=== PATIENT | female | born 1940 | race Caucasian/White ===

== ENCOUNTER 2023-04-30 16:35 | Inpatient (IN) ==
[2023-04-30 16:45] VITALS: BMI 35.5
--- NOTE | 2023-04-30 17:16 | ED.ABDFE ---
HPI Time Seen Time Seen by Provider: 04/30/23 17:16 PCP Primary Care Physician: Dr. Gonzalez Complaint Doctors Chief Complaint Comments: 83-year-old female presents for evaluation. Not feeling well for the past 3 days. Having lower abdominal discomfort, worse in the left lower quadrant. Pain is dull, worse with palpation and movement, does not radiate. Developed nausea with vomiting today. Has not moved her bowels in 3 days, no change in medication, no known cause. Denies fever, chills, urinary issues. Denies upper respiratory symptoms, no cough. Only abdominal surgery history of hysterectomy, no known history of diverticulitis. Chief Complaint:: Pt states that she hasn't had a bowel movement since Friday. Yesterday she started having generalized intermittent abdominal cramping that is worse in the LLQ. Today pt has started having nausea with approximately five episodes of vomiting. Self Treatment fo Chief Complaint: Pt took Dulcolax x 3 yesterday and x 3 today with no results. COVID-19 Coronavirus risk:travel/contact w/high risk person: No Has patient experienced Coronavirus symptoms: No Reviewed Nurses Notes Review: Yes Source History Provided: Patient Mode of arrival Mode of Arrival: Ambulatory Timing Onset of Chief Complaint: 04/27/23 PMH PMH Past Medical History: Yes Past Medical History: Dyslipidemia, GERD and Hypertension Past Surgical History: Yes Surgical History: Hysterectomy and Thyroidectomy Past Surgical History Comment: bilateral tka, shoulders Family History History of Family Medical Conditions: Yes Family Medical History: Diabetes Mellitus and Hypertension Family Medical History Comment: cva Social History Does patient currently use any type of tobacco product: No Have you used tobacco products in the last 12 months: No Type of Tobacco Use: None Does any household member use tobacco: No Alcohol Use: Occasionally Do you use any recreational Drugs:: No Lives With: Alone Lives Where: Home Travel Risk Coronavirus risk:travel/contact w/high risk person: No Has patient experienced Coronavirus symptoms: No Infectious screening In the last 2 months have you had wt loss of >10#?: NO Have you had fever, night sweats or hemotysis?: No Have you traveled outside the country in the last 6 months?: No Isolation: Standard ROS Review of Systems Constitutional: No Symptoms Reported Eyes: No Symptoms Reported ENTM: No Symptoms Reported Respiratoy: No Symptoms Reported Cardiovascular: No Symptoms Reported Gastrointestinal/Abdominal: See HPI Genitourinary: No Symptoms Reported Neurological: No Symptoms Reported Musculoskeletal: No Symptoms Reported Integumentary: No Symptoms Reported Hematologic/Lymphatic: No Symptoms Reported All Other Systems: Reviewed and Negative PE Vital Signs Vitals: Vital Signs Temperature 98.9 F Pulse Rate 72 Respiratory Rate 20 Blood Pressure 167/89 O2 Sat by Pulse Oximetry 94 General General Appearance: Alert and In No Apparent Distress Eyes Eye exam: PERRL and EOMI ENT ENT Exam: Mucous Membranes Moist Neck Neck Exam: Normal Inspection Respiratory Respiratory Exam: Normal Lung Sounds Bilat; negative Accessory Muscle Use or Respiratory Distress Cardiovascular Cardiovascular Exam: Regular Rate, Normal Rhythm and Normal Heart Sounds Abdominal Exam Abdominal Exam: Normal Bowel Sounds, Soft and Tenderness (LLQ, with guarding, no rebound. Back - no CVA tenderness.) Extremeties Extremities Exam: Normal Inspection; negative Edema Neurologic Neurological Exam: Alert, Oriented X3 and CN II-XII Intact; negative Motor Sensory Deficit Skin Skin Exam: Warm and Dry COURSE Treatment Treatment: 83-year-old female with 3 days of left lower quadrant abdominal pain, constipation. Now with nausea and vomiting. Work-up initiated. Patient given IV fluids, IV Zofran. 1802 -acute abdomen series has nonspecific gas pattern, no obvious air-fluid levels. No free air under the diaphragm. Rectal exam - no obvious impaction. Labs acceptable. Will obtain CT scan of the abdomen pelvis w/IV contrast. 1940 -CT shows sigmoid colon wall thickening, 7 cm long, concerning for possible neoplastic process, versus sequelae of colitis. No obvious obstruction. Recommend admission for IV fluids, antibiotics, consult with surgery in the a.m. for possible sigmoidoscopy. ROR Labs Reviewed Laboratory Results Reviewed?: Yes 05/01/23 05:11 05/01/23 05:11 Laboratory: WBC 7.0 X10^3/uL (3.6-10.0) 04/30/23 17:34 RBC 4.74 X10^6/uL (3.5-5.4) 04/30/23 17:34 Hgb 13.6 g/dL (12.0-16.0) 04/30/23 17:34 Hct 41.6 % (36.0-47.0) 04/30/23 17:34 MCV 87.9 fL (80.0-100.0) 04/30/23 17:34 MCH 28.7 pg (27.0-34.0) 04/30/23 17:34 MCHC 32.6 g/dL (33.0-35.0) L 04/30/23 17:34 RDW 13.7 % (11.6-16.5) 04/30/23 17:34 Plt Count 190 X10^3/uL (150.0-450.0) 04/30/23 17:34 MPV 8.1 fL (7.4-11.0) 04/30/23 17:34 Neut % (Auto) 81.7 % (42.0-75.0) H 04/30/23 17:34 Lymph % (Auto) 9.9 % (21.0-51.0) L 04/30/23:34 [place] % (Auto) 6.2 % (0.0-13.0) 04/30/23 17:34 Eos % (Auto) 1.5 % (0.9-2.9) 04/30/23 17:34 Baso % (Auto) 0.7 % (0.2-1.0) 04/30/23 17:34 Neut # (Auto) 5.7 x10^3/uL (2.2-4.8) H 04/30/23 17:34 Lymph # (Auto) 0.7 X10^3/uL (1.3-2.9) L 04/30/23 17:34 [place] # (Auto) 0.4 x10^3/uL (0.3-0.8) 04/30/23 17:34 Eos # (Auto) 0.1 x10^3/uL (0.0-0.2) 04/30/23 17:34 Baso # (Auto) 0.0 X10^3/uL (0.0-0.1) 04/30/23 17:34 Absolute Nucleated RBC 0.1 /100WBC 04/30/23 17:34 Sodium 136 mmol/L (136-145) 04/30/23 17:34 Corrected Sodium 136 mmol/L (136-145) 04/30/23 17:34 Potassium 3.9 mmol/L (3.5-5.1) 04/30/23 17:34 Chloride 100 mmol/L (98-107) 04/30/23 17:34 Carbon Dioxide 29.2 mmol/L (21-32) 04/30/23 17:34 BUN 19 mg/dL (7-18) H 04/30/23 17:34 Creatinine 1.10 mg/dL (0.55-1.02) H 04/30/23 17:34 Est GFR (MDRD) Af Amer > 60 (>60) 04/30/23 17:34 Est GFR (MDRD) Non-Af 51 (>60) L 04/30/23 17:34 Glucose 118 mg/dL (65-99) H 04/30/23 17:34 Lactic Acid 0.5 mmol/L (0.4-2.0) 04/30/23 17:34 Calcium 8.5 mg/dL (8.5-10.1) 04/30/23 17:34 Corrected Calcium TNP 04/30/23 17:34 Total Bilirubin 0.70 mg/dL (0.2-1.0) 04/30/23 17:34 AST 16 Units/L (15-37) 04/30/23 17:34 ALT 14 Units/L (12-78) 04/30/23 17:34 Alkaline Phosphatase 88 Units/L (46-116) 04/30/23 17:34 Total Protein 7.2 g/dL (6.4-8.2) 04/30/23 17:34 Albumin 3.4 g/dL (3.4-5.0) 04/30/23 17:34 Globulin 3.8 g/dL (2.5-4.5) 04/30/23 17:34 Albumin/Globulin Ratio 0.9 Ratio (1.1-2.1) L 04/30/23 17:34 Lipase 29 Units/L (16-77) 04/30/23 17:34 Specimen Type Clean catch urine 04/30/23 17:25 Urine Color Dark yellow (YELLOW) 04/30/23 17:25 Urine Appearance Slightly hazy (CLEAR) 04/30/23 17:25 Urine pH 5.0 (5.0 - 8.0) 04/30/23 17:25 Ur Specific [place] 1.020 (1.000-1.030) 04/30/23 17:25 Urine Protein 1+ (NEGATIVE) 04/30/23 17:25 Urine Glucose (UA) Negative (NEGATIVE) 04/30/23 17:25 Urine Ketones Negative (NEGATIVE) 04/30/23 17: Urine Blood Negative (NEGATIVE) 04/30/23 17: Urine Nitrite Negative (NEGATIVE) 04/30/23 17:25 Urine Bilirubin Negative (NEGATIVE) 04/30/23 17: Urine Urobilinogen 1+ (NORMAL) 04/30/23 17: Ur Leukocyte Esterase Negative (NEGATIVE) 04/30/23 17: Urine RBC None seen /HPF (0-3) 04/30/23 17: Urine WBC None seen /HPF (0-5) 04/30/23 17: Ur Squamous Epith Cells Few /HPF (NEGATIVE) 04/30/23 17: Urine Bacteria Trace /HPF (NEGATIVE) 04/30/23 17: Urine Mucus Few /HPF (NEGATIVE) 04/30/23 17: Ur Culture Indicated? No/not indicated 04/30/23 17: XRAY XRAY Interpreted by: Radiologist X-ray Results: EXAM: ABDCMEN/PELVIS WITH CON HISTORY: hasn't had a bowel movement since Friday. Yesterday she started having generalized intermittent abd cramping that is worse in the LLQ. Today pt has started having n/v x5 episodes ; COMPARISON: None. TECHNIQUE: Axial CT images of the abdomen and pelvis were obtained after the administration of 100 mL Omnipaque 350 IV contrast and reformatted into coronal and sagittal planes for further evaluation. Radiation dose: 614.46 mGy-cm total DLP FINDINGS: Lung bases are clear. Stomach appears normal. Solid visceral organs of the upper abdomen are unremarkable. Gallbladder appears normal with no biliary dilatation. Cyst in the lower pole of the left kidney. Otherwise, unremarkable appearance of the kidneys and ureters. Unremarkable appearance of the urinary bladder. Imaged reproductive structures are unremarkable. Colonic diverticulosis without diverticulitis. Colonic wall thickening over a 7 cm segment in the sigmoid colon. Unremarkable appearance of the small bowel. No evidence of acute appendicitis. No pneumoperitoneum. No significant fluid collection. No adenopathy. No acute osseous abnormality. [id number] multilevel degenerative disc and joint changes. Small fat containing umbilical hernia without inflammatory changes. IMPRESSION: 1. Colonic wall thickening over a 7 cm segment in the sigmoid colon. No surrounding inflammatory changes. Differential diagnosis includes a neoplastic process; although the sequela of infectious/inflammatory/ischemic colitis should also be considered. No evidence of metastatic disease. 2. Colonic diverticulosis without diverticulitis. THIS IS AN ELECTRONICALLY VERIFIED FINAL REPORT 04/30/2023 7:03 PM - Electronically signed by Magnus Adkins MD Opioid Opioid Risk Tool Age (Deangelo box if 16-45): No History of Preadolescent Sexual Abuse: No Total: 0 Total Score Risk Category: Low Risk Copyright: Ross JHA predicting aberrant behaviors Discharge Plan Diagnosis Discharge Problem: Colitis Discharge Plan Patient Disposition: ADMITTED INPATIENT Condition: Stable
[2023-04-30] MEDS ORDERED: ZOFRAN INJ 4 MG VIAL IVP ONE (17:22)
[2023-04-30] MEDS ORDERED: NS 500 ML IV 500 ML IV ONE (17:23)
[2023-04-30 17:52] LABS: BASOPHILS % (AUTO) 0.7 % (0.2-1.0); EOSINOPHILS # (AUTO) 0.1 x10^3/uL (0.0-0.2); EOSINOPHILS % (AUTO) 1.5 % (0.9-2.9); HEMATOCRIT 41.6 % (36.0-47.0); HEMOGLOBIN 13.6 g/dL (12.0-16.0); LYMPHOCYTES # (AUTO) 0.7 X10^3/uL (1.3-2.9); LYMPHOCYTES % (AUTO) 9.9 % (21.0-51.0); MEAN CORPUSCULAR HEMOGLOBIN 28.7 pg (27.0-34.0); MEAN CORPUSCULAR HGB CONC 32.6 g/dL (33.0-35.0); MEAN CORPUSCULAR VOLUME 87.9 fL (80.0-100.0); MEAN PLATELET VOLUME 8.1 fL (7.4-11.0); MONOCYTES # (AUTO) 0.4 x10^3/uL (0.3-0.8); MONOCYTES % (AUTO) 6.2 % (0.0-13.0); NEUTROPHILS # (AUTO) 5.7 x10^3/uL (2.2-4.8); NEUTROPHILS % (AUTO) 81.7 % (42.0-75.0); PLATELET COUNT 190 X10^3/uL (150.0-450.0); RED BLOOD COUNT 4.74 X10^6/uL (3.5-5.4); RED CELL DISTRIBUTION WIDTH 13.7 % (11.6-16.5)
[2023-04-30 17:53] LABS: BILIRUBIN,URINE NEGATIVE (NEGATIVE); BLOOD/HEMOGLOBIN,URINE NEGATIVE (NEGATIVE); GLUCOSE, URINE NEGATIVE (NEGATIVE); KETONES,URINE NEGATIVE (NEGATIVE); LEUKOCYTE ESTERASE ,URINE NEGATIVE (NEGATIVE); NITRITES,URINE NEGATIVE (NEGATIVE); PROTEIN,URINE 1+ (NEGATIVE); UROBILINOGEN,URINE 1+ (NORMAL)
[2023-04-30 17:59] LABS: APPEARANCE,URINE SLIGHTLY HAZY (CLEAR); BACTERIA,URINE TRACE /HPF (NEGATIVE); COLOR,URINE DARK YELLOW (YELLOW); RBC,URINE NONE SEEN /HPF (0-3); SQUAMOUS EPITHELIAL CELL,UR FEW /HPF (NEGATIVE)
[2023-04-30 18:01] LABS: ALANINE AMINOTRANSFERASE 14 Units/L (12-78); ALBUMIN 3.4 g/dL (3.4-5.0); ALKALINE PHOSPHATASE 88 Units/L (46-116); ASPARTATE AMINO TRANSFERASE 16 Units/L (15-37); BLOOD UREA NITROGEN 19 mg/dL (7-18); CALCIUM 8.5 mg/dL (8.5-10.1); CARBON DIOXIDE 29.2 mmol/L (21-32); CHLORIDE 100 mmol/L (98-107); COR NA(FOR HYPERGLY) 136 mmol/L (136-145); GLUCOSE 118 mg/dL (65-99); LIPASE 29 Units/L (16-77); POTASSIUM 3.9 mmol/L (3.5-5.1); SODIUM 136 mmol/L (136-145); TOTAL PROTEIN 7.2 g/dL (6.4-8.2); eGFR NON BLACK RACES 51 (>60)
[2023-04-30] MEDS ORDERED: OMNIPAQUE 350 mg/mL 100 mL BTL 100 ML ONE (18:23)
--- NOTE | 2023-04-30 19:07 | CT ---
EXAM:ABDCMEN/PELVIS WITH CONHISTORY:hasn't had a bowel movement since Friday. Yesterday she started having generalized intermittent abd cramping that is worse in the LLQ. Today pt has started having n/v x5 episodes ;COMPARISON:None.TECHNIQUE:Axial CT images of the abdomen and pelvis were obtained after the administration of 100 mL Omnipaque 350 IV contrast and reformatted into coronal and sagittal planes for further evaluation.Radiation dose: 614.46 mGy-cm total DLPFINDINGS:Lung bases are clear.Stomach appears normal.Solid visceral organs of the upper abdomen are unremarkable.Gallbladder appears normal with no biliary dilatation.Cyst in the lower pole of the left kidney.Otherwise, unremarkable appearance of the kidneys and ureters.Unremarkable appearance of the urinary bladder.Imaged reproductive structures are unremarkable.Colonic diverticulosis without diverticulitis.Colonic wall thickening over a 7 cm segment in the sigmoid colon.Unremarkable appearance of the small bowel.No evidence of acute appendicitis.No pneumoperitoneum.No significant fluid collection.No adenopathy.No acute osseous abnormality.[id number] multilevel degenerative disc and joint changes.Small fat containing umbilical hernia without inflammatory changes.IMPRESSION:1. Colonic wall thickening over a 7 cm segment in the sigmoid colon. No surrounding inflammatory changes. Differential diagnosis includes a neoplastic process; although the sequela of infectious/inflammatory/ischemic colitis should also be considered. No evidence of metastatic disease.2. Colonic diverticulosis without diverticulitis.THIS IS AN ELECTRONICALLY VERIFIED FINAL [id number]/30/2023 7:03 PM - Electronically signed by Magnus Adkins MD
--- NOTE | 2023-04-30 20:09 | RAD ---
EXAM:ACUTE ABDOMEN SERI ESHISTORY:constipation, LLQ pain, vomiting;COMPARISON:No relevant prior studies available.TECHNIQUE:AP supine and upright abdominal radiographs with chest radiography, 3 images.FINDINGS:Moderate stool burden in the colon.Gas in scattered loops of non-distended small bowel.No gross free air.No abnormal calcifications.Lungs are clear of focal airspace disease.No cardiomegaly.No pneumothorax.No pleural effusion.No acute osseous abnormality.IMPRESSION:1. Moderate stool burden in the colon.2. Gas in scattered loops of non-distended small bowel could represent a nonspecific enteritis or ileus..THIS IS AN ELECTRONICALLY VERIFIED FINAL [id number]/30/2023 8:06 PM - Electronically signed by Magnus Adkins MD
[2023-04-30] MEDS ORDERED: ZOSYN VIAL 3.375 GRAMS IV ONE (20:15)
[2023-04-30] MEDS ORDERED: NS 100 ML IV 100 ML ONE (20:16)
[2023-04-30] MEDS: ZOSYN VIAL 3.375 GRAMS 3.375 G in NS 100 ML IV 100 ML IV SCH (20:21)
[2023-04-30] MEDS ORDERED: CONSULT PHARMACY - POTASSIUM & MAGNESIUM XX SCH (21:42)
[2023-04-30] MEDS ORDERED: ZOFRAN INJ 4 MG VIAL IVP PRN (21:42)
[2023-04-30] MEDS: FLAGYL IV PREMIX 500 MG BAG 500 MG/100 ML BAG IV SCH (22:25)
[2023-04-30] MEDS: D5 1/2 NS 1,000 ML 1,000 ML IV SCH (22:25)
[2023-04-30] MEDS ORDERED: K-DUR TAB 20 MEQ PO ONE (23:00)
[2023-05-01 05:46] LABS: BASOPHILS % (AUTO) 0.7 % (0.2-1.0); EOSINOPHILS # (AUTO) 0.1 x10^3/uL (0.0-0.2); EOSINOPHILS % (AUTO) 0.8 % (0.9-2.9); HEMATOCRIT 37.1 % (36.0-47.0); LYMPHOCYTES # (AUTO) 1.2 X10^3/uL (1.3-2.9); MEAN CORPUSCULAR HEMOGLOBIN 28.5 pg (27.0-34.0); MEAN CORPUSCULAR HGB CONC 32.4 g/dL (33.0-35.0); MEAN CORPUSCULAR VOLUME 87.8 fL (80.0-100.0); MEAN PLATELET VOLUME 8.4 fL (7.4-11.0); MONOCYTES # (AUTO) 0.7 x10^3/uL (0.3-0.8); MONOCYTES % (AUTO) 10.1 % (0.0-13.0); NEUTROPHILS # (AUTO) 4.8 x10^3/uL (2.2-4.8); NEUTROPHILS % (AUTO) 70.4 % (42.0-75.0); PLATELET COUNT 169 X10^3/uL (150.0-450.0); RED BLOOD COUNT 4.22 X10^6/uL (3.5-5.4); RED CELL DISTRIBUTION WIDTH 13.6 % (11.6-16.5); WHITE BLOOD COUNT 6.8 X10^3/uL (3.6-10.0)
[2023-05-01 05:59] LABS: ALANINE AMINOTRANSFERASE 12 Units/L (12-78); ALBUMIN 2.8 g/dL (3.4-5.0); ALKALINE PHOSPHATASE 70 Units/L (46-116); ASPARTATE AMINO TRANSFERASE 13 Units/L (15-37); BLOOD UREA NITROGEN 16 mg/dL (7-18); CALCIUM 8.1 mg/dL (8.5-10.1); CARBON DIOXIDE 32.6 mmol/L (21-32); CHLORIDE 104 mmol/L (98-107); COR CA(FOR HYPOALB) 9.1 mg/dL (8.5-10.1); COR NA(FOR HYPERGLY) 139 mmol/L (136-145); GLUCOSE 113 mg/dL (65-99); POTASSIUM 4.4 mmol/L (3.5-5.1); SODIUM 139 mmol/L (136-145); TOTAL PROTEIN 6.1 g/dL (6.4-8.2); eGFR NON BLACK RACES 51 (>60)
[2023-05-01] MEDS: ZOSYN VIAL 3.375 GRAMS 3.375 G in NS 100 ML IV 100 ML IV SCH ×2 (09:45→21:36)
[2023-05-01] MEDS: FLAGYL IV PREMIX 500 MG BAG 500 MG/100 ML BAG IV SCH ×2 (09:45→21:35)
[2023-05-01] MEDS ORDERED: MORPHINE SULFATE INJ 2 MG INJ IVP PRN (10:04)
[2023-05-01] MEDS: D5 1/2 NS 1,000 ML 1,000 ML IV SCH ×2 (11:37→21:36)
[2023-05-01] MEDS: SYNTHROID 75 mcg TAB PO SCH (11:39)
--- NOTE | 2023-05-01 13:07 | DR.H&P ---
H&P History & Physical for Day of: H&P Date: 04/30/23 Chief Complaint Chief Complaint: LEFT ABDOMINAL PAIN, N/V FOR 4 DAYS Allergies Allergies Allergy/AdvReac Type Severity Reaction Status Date / Time No Known Allergies Allergy Verified 04/30/23 16:45 History of Present Illness History of Present Illness: PT IS 83 WF, ER ADMISSION WITH CO LEFT LATERAL ABDOMINAL PAIN WITH N/V AND POOR APPETITE FOR 4 DAYS. PT STATES SHE FEELS CONSTIPATION BUT CANNOT PASS STOOL. PT REPORTS LAST COLONOSCOPY WAS 5 YEARS AGO. PT HAD CT ABD/PELVIS IN ER AND STARTED ON IV FLAGYL AND ZOSYN. DR LUGO CONSULTED. PT ADMITTED FOR TREATMENT AND EVALUATION OF ACUTE ILLNESS. Past Medical History Past Medical History: Dyslipidemia, GERD and Hypertension Past Surgical History Surgical History: Hysterectomy, Ortho Surgery, Thyroidectomy and Other Family History Family Medical History: Diabetes Mellitus and Hypertension Social History Does patient currently use any type of tobacco product: No Have you used tobacco products in the last 12 months: No Type of Tobacco Use: None Does any household member use tobacco: No Alcohol Use: Occasionally Drug Use: None Medications Home Medications: Home Medications Medication Instructions Recorded Confirmed Type carvedilol 6.25 mg tablet 1 tab PO BID 06/23/22 06/23/22 History irbesartan 300 mg tablet 300 mg PO QDAY 06/23/22 04/30/23 History levothyroxine 75 mcg tablet 75 mcg PO QAM 06/23/22 04/30/23 History pantoprazole 40 mg tablet,delayed 40 mg PO QDAY 06/23/22 04/30/23 History release aspirin 81 mg capsule 81 mg PO DAILY 04/30/23 04/30/23 History atorvastatin 10 mg tablet 10 mg PO QDAY 04/30/23 04/30/23 History cholecalciferol (vitamin D3) 100 100 mcg PO DAILY 04/30/23 04/30/23 History mcg (4,000 unit) capsule hydrochlorothiazide 12.5 mg capsule 12.5 mg PO QAM swelling 04/30/23 04/30/23 History meloxicam 15 mg tablet 15 mg PO QDAY 04/30/23 04/30/23 History Labs 05/01/23 05:11 05/01/23 05:11 Labs: Laboratory WBC 6.8 X10^3/uL (3.6-10.0) 05/01/23 05:11 RBC 4.22 X10^6/uL (3.5-5.4) 05/01/23 05:11 Hgb 12.0 g/dL (12.0-16.0) 05/01/23 05:11 Hct 37.1 % (36.0-47.0) 05/01/23 05:11 MCV 87.8 fL (80.0-100.0) 05/01/23 05:11 MCH 28.5 pg (27.0-34.0) 05/01/23 05:11 MCHC 32.4 g/dL (33.0-35.0) L 05/01/23 05:11 RDW 13.6 % (11.6-16.5) 05/01/23 05:11 Plt Count 169 X10^3/uL (150.0-450.0) 05/01/23 05:11 MPV 8.4 fL (7.4-11.0) 05/01/23 05:11 Neut % (Auto) 70.4 % (42.0-75.0) 05/01/23 05:11 Lymph % (Auto) 18.0 % (21.0-51.0) L 05/01/23 05:11 [place] % (Auto) 10.1 % (0.0-13.0) 05/01/23 05:11 Eos % (Auto) 0.8 % (0.9-2.9) L 05/01/23 05:11 Baso % (Auto) 0.7 % (0.2-1.0) 05/01/23 05:11 Neut # (Auto) 4.8 x10^3/uL (2.2-4.8) 05/01/23 05:11 Lymph # (Auto) 1.2 X10^3/uL (1.3-2.9) L 05/01/23 05:11 [place] # (Auto) 0.7 x10^3/uL (0.3-0.8) 05/01/23 05:11 Eos # (Auto) 0.1 x10^3/uL (0.0-0.2) 05/01/23 05:11 Baso # (Auto) 0.0 X10^3/uL (0.0-0.1) 05/01/23 05:11 Absolute Nucleated RBC 0.0 /100WBC 05/01/23 05:11 Sodium 139 mmol/L (136-145) 05/01/23 05:11 Corrected Sodium 139 mmol/L (136-145) 05/01/23 05:11 Potassium 4.4 mmol/L (3.5-5.1) 05/01/23 05:11 Chloride 104 mmol/L (98-107) 05/01/23 05:11 Carbon Dioxide 32.6 mmol/L (21-32) H 05/01/23 05:11 BUN 16 mg/dL (7-18) 05/01/23 05:11 Creatinine 1.10 mg/dL (0.55-1.02) H 05/01/23 05:11 Est GFR (MDRD) Af Amer > 60 (>60) 05/01/23 05:11 Est GFR (MDRD) Non-Af 51 (>60) L 05/01/23 05:11 Glucose 113 mg/dL (65-99) H 05/01/23 05:11 POC Glucose (mg/dL) 95 mg/dL (65-99) 05/01/23 12:20 Lactic Acid 0.5 mmol/L (0.4-2.0) 04/30/23 17:34 Calcium 8.1 mg/dL (8.5-10.1) L 05/01/23 05:11 Corrected Calcium 9.1 mg/dL (8.5-10.1) 05/01/23 05:11 Total Bilirubin 0.50 mg/dL (0.2-1.0) 05/01/23 05:11 AST 13 Units/L (15-37) L 05/01/23 05:11 ALT 12 Units/L (12-78) 05/01/23 05:11 Alkaline Phosphatase 70 Units/L (46-116) 05/01/23 05:11 Total Protein 6.1 g/dL (6.4-8.2) L 05/01/23 05:11 Albumin 2.8 g/dL (3.4-5.0) L 05/01/23 05:11 Globulin 3.3 g/dL (2.5-4.5) 05/01/23 05:11 Albumin/Globulin Ratio 0.8 Ratio (1.1-2.1) L 05/01/23 05:11 Lipase 29 Units/L (16-77) 04/30/23 17:34 Specimen Type Clean catch urine 04/30/23 17:25 Urine Color Dark yellow (YELLOW) 04/30/23 17:25 Urine Appearance Slightly hazy (CLEAR) 04/30/23 17:25 Urine pH 5.0 (5.0 - 8.0) 04/30/23 17:25 Ur Specific [place] 1.020 (1.000-1.030) 04/30/23 17:25 Urine Protein 1+ (NEGATIVE) 04/30/23 17:25 Urine Glucose (UA) Negative (NEGATIVE) 04/30/23 17:25 Urine Ketones Negative (NEGATIVE) 04/30/23 17:25 Urine Blood Negative (NEGATIVE) 04/30/23 17:25 Urine Nitrite Negative (NEGATIVE) 04/30/23 17:25 Urine Bilirubin Negative (NEGATIVE) 04/30/23 17:25 Urine Urobilinogen 1+ (NORMAL) 04/30/23 17:25 Ur Leukocyte Esterase Negative (NEGATIVE) 04/30/23 17:25 Urine RBC None seen /HPF (0-3) 04/30/23 17:25 Urine WBC None seen /HPF (0-5) 04/30/23 17:25 Ur Squamous Epith Cells Few /HPF (NEGATIVE) 04/30/23 17:25 Urine Bacteria Trace /HPF (NEGATIVE) 04/30/23 17:25 Urine Mucus Few /HPF (NEGATIVE) 04/30/23 17:25 Ur Culture Indicated? No/not indicated 04/30/23 17:25 Review of Systems Constitutional: Weakness Eyes: No Symptoms Reported ENT: No Symptoms Reported Respiratory: No Symptoms Reported Cardiovascular: No Symptoms Reported Gastrointestinal: Nausea, Vomiting and Abdominal Pain Genitourinary: No Symptoms Reported Musculoskeletal: No Symptoms Reported Skin: No Symptoms Reported Neurological: No Symptoms Reported Physical Exam Vital Signs: Vital Signs Temperature 98.3 F Pulse Rate [Right] 69 Respiratory Rate 18 Respiratory Rate 18 Blood Pressure [Right Arm] 143/67 O2 Sat by Pulse Oximetry 94 Oriented: Normal Eyes: Normal Ear: Normal Nose: Normal Throat: Red Respiratory: Clear Throughout Cardiovascular: Normal : Normal Auscultation: Bowel Sounds: Decreased Palpation: negative Spleen Enlarged or Mass Pulsatile Tenderness: LLQ Skin: Normal Musculoskeletal: Normal Affect: Normal Speech Pattern: Clear Assessment/Plan (1) Colitis: Narrative Support Text: ADMIT, IV ATBX IV HYDRATION NPO, PAIN CONTROL VERIFY HOME MEDICATION SURGICAL CONSULT REPEAT AM LABS Status: Acute (2) Malignant hypertension: Status: Acute
[2023-05-01] MEDS ORDERED: DIPRIVAN VIAL 20 ML ONE (13:42)
[2023-05-01] MEDS ORDERED: NS 1,000 ML IV 1,000 ML ONE (13:46)
[2023-05-01] MEDS ORDERED: GOLYTELY or GAVILYTE or Equivalent PO SCH (15:00)
[2023-05-01] MEDS ORDERED: TYLENOL 325 MG TAB PO PRN (21:35)
[2023-05-02] MEDS: D5 1/2 NS 1,000 ML 1,000 ML IV SCH ×2 (05:15→13:39)
[2023-05-02] MEDS: SYNTHROID 75 mcg TAB PO SCH (05:45)
[2023-05-02 06:14] LABS: BASOPHILS % (AUTO) 0.7 % (0.2-1.0); EOSINOPHILS # (AUTO) 0.1 x10^3/uL (0.0-0.2); EOSINOPHILS % (AUTO) 1.8 % (0.9-2.9); HEMATOCRIT 34.3 % (36.0-47.0); HEMOGLOBIN 11.2 g/dL (12.0-16.0); LYMPHOCYTES # (AUTO) 1.3 X10^3/uL (1.3-2.9); LYMPHOCYTES % (AUTO) 21.3 % (21.0-51.0); MEAN CORPUSCULAR HEMOGLOBIN 28.6 pg (27.0-34.0); MEAN CORPUSCULAR HGB CONC 32.7 g/dL (33.0-35.0); MEAN CORPUSCULAR VOLUME 87.4 fL (80.0-100.0); MEAN PLATELET VOLUME 8.2 fL (7.4-11.0); MONOCYTES # (AUTO) 0.5 x10^3/uL (0.3-0.8); MONOCYTES % (AUTO) 7.7 % (0.0-13.0); NEUTROPHILS % (AUTO) 68.5 % (42.0-75.0); PLATELET COUNT 145 X10^3/uL (150.0-450.0); RED BLOOD COUNT 3.92 X10^6/uL (3.5-5.4); RED CELL DISTRIBUTION WIDTH 13.6 % (11.6-16.5); WHITE BLOOD COUNT 5.9 X10^3/uL (3.6-10.0)
[2023-05-02 06:29] LABS: ALANINE AMINOTRANSFERASE 9 Units/L (12-78); ALBUMIN 2.6 g/dL (3.4-5.0); ALKALINE PHOSPHATASE 60 Units/L (46-116); ASPARTATE AMINO TRANSFERASE 14 Units/L (15-37); BLOOD UREA NITROGEN 13 mg/dL (7-18); CALCIUM 7.7 mg/dL (8.5-10.1); CARBON DIOXIDE 31.9 mmol/L (21-32); CHLORIDE 105 mmol/L (98-107); COR CA(FOR HYPOALB) 8.8 mg/dL (8.5-10.1); GLUCOSE 93 mg/dL (65-99); POTASSIUM 3.4 mmol/L (3.5-5.1); SODIUM 143 mmol/L (136-145); TOTAL PROTEIN 5.5 g/dL (6.4-8.2); eGFR NON BLACK RACES 51 (>60)
[2023-05-02] MEDS ORDERED: CONSULT PHARMACY - POTASSIUM & MAGNESIUM XX SCH ×2 (07:00→08:00)
[2023-05-02] MEDS: ZOSYN VIAL 3.375 GRAMS 3.375 G in NS 100 ML IV 100 ML IV SCH ×4 (10:12→21:32)
[2023-05-02] MEDS: MAGNESIUM SULFATE 1 GRAM/100 mL PREMIX 1 G/100 ML BAG IV SCH ×3 (10:12→14:25)
[2023-05-02] MEDS: FLAGYL IV PREMIX 500 MG BAG 500 MG/100 ML BAG IV SCH ×2 (10:12→21:20)
[2023-05-02] MEDS: K-RIDER 10 MEQ/NS 100 ML 10 MEQ/100 ML BAG IV SCH ×2 (10:13→11:13)
[2023-05-02] MEDS ORDERED: NS 1,000 ML IV 1,000 ML ONE (10:15)
[2023-05-02] MEDS ORDERED: DIPRIVAN VIAL 20 ML ONE (10:42)
--- NOTE | 2023-05-02 15:34 | PCM.PROG ---
Progress Note Progress Note for Day of Date of Exam: 05/02/23 Subjective Subjective: PT IS 83 WF, ER ADMISSION WITH CO LEFT LATERAL ABDOMINAL PAIN WITH N/V AND POOR APPETITE FOR 4 DAYS. PT STATES SHE FEELS CONSTIPATION BUT CANNOT PASS STOOL. PT REPORTS LAST COLONOSCOPY WAS 5 YEARS AGO. PT HAD CT ABD/PELVIS IN ER AND STARTED ON IV FLAGYL AND ZOSYN. DR LUGO CONSULTED. PT HAD SIGMOIDOSCOPY ON 05/01. BOWEL PREP DURING THE NIGHT, PT NPO FOR COLONOSCOPY THIS MORNING. PT REPORTS LEFT LATERAL ABDOMINAL PAIN HAS SIGNIFICANTLY IMPROVED AFTER BMS. Past Medical Family Social History Allergies: Allergies No Known Allergies Allergy (Verified 04/30/23 16:45) Vital Signs and I&O's Vital Signs: Vital Signs Temperature 98.0 F Temperature 98.0 F Temperature 98.6 F Temperature 98.6 F Temperature 97.1 F Temperature 98.1 F Pulse Rate [Right] 57 Pulse Rate [Right] 59 Pulse Rate [Right] 62 Pulse Rate [Right] 65 Pulse Rate [Right] 64 Pulse Rate [Right] 64 Respiratory Rate 20 Respiratory Rate 20 Respiratory Rate 20 Respiratory Rate 20 Respiratory Rate 18 Respiratory Rate 20 Blood Pressure [Right Arm] 164/76 Blood Pressure [Right Arm] 148/71 Blood Pressure [Right Arm] 149/68 Blood Pressure [Right Arm] 135/62 Blood Pressure [Right Arm] 134/63 Blood Pressure [Right Arm] 122/65 O2 Sat by Pulse Oximetry 97 O2 Sat by Pulse Oximetry 97 O2 Sat by Pulse Oximetry 97 O2 Sat by Pulse Oximetry 97 O2 Sat by Pulse Oximetry 97 O2 Sat by Pulse Oximetry 94 Intake and Output: Intake & Output 04/30/23 05/01/23 05/02/23 05/03/23 11:59 11:59 11:59 11:59 Intake Total 550 / 550 2034 810 / 810 Balance 550 / 550 2034 810 / 810 Physical Exam Oriented: Normal Eyes: Normal Ear: Normal Nose: Normal Throat: Red Cardiovascular: Normal : Normal Auscultation: Bowel Sounds: Decreased Tenderness: LLQ Skin: Normal Musculoskeletal: Normal Affect: Normal Speech Pattern: Clear and Appropriate Laboratory and Diagnostics 05/02/23 05:10 05/02/23 05:10 Labs: Laboratory WBC 5.9 X10^3/uL (3.6-10.0) 05/02/23 05:10 RBC 3.92 X10^6/uL (3.5-5.4) 05/02/23 05:10 Hgb 11.2 g/dL (12.0-16.0) L 05/02/23 05:10 Hct 34.3 % (36.0-47.0) L 05/02/23 05:10 MCV 87.4 fL (80.0-100.0) 05/02/23 05:10 MCH 28.6 pg (27.0-34.0) 05/02/23 05:10 MCHC 32.7 g/dL (33.0-35.0) L 05/02/23 05:10 RDW 13.6 % (11.6-16.5) 05/02/23 05:10 Plt Count 145 X10^3/uL (150.0-450.0) L 05/02/23 05:10 MPV 8.2 fL (7.4-11.0) 05/02/23 05:10 Neut % (Auto) 68.5 % (42.0-75.0) 05/02/23 05:10 Lymph % (Auto) 21.3 % (21.0-51.0) 05/02/23 05:10 [place] % (Auto) 7.7 % (0.0-13.0) 05/02/23 05:10 Eos % (Auto) 1.8 % (0.9-2.9) 05/02/23 05:10 Baso % (Auto) 0.7 % (0.2-1.0) 05/02/23 05:10 Neut # (Auto) 4.0 x10^3/uL (2.2-4.8) 05/02/23 05:10 Lymph # (Auto) 1.3 X10^3/uL (1.3-2.9) 05/02/23 05:10 [place] # (Auto) 0.5 x10^3/uL (0.3-0.8) 05/02/23 05:10 Eos # (Auto) 0.1 x10^3/uL (0.0-0.2) 05/02/23 05:10 Baso # (Auto) 0.0 X10^3/uL (0.0-0.1) 05/02/23 05:10 Absolute Nucleated RBC 0.0 /100WBC 05/02/23 05:10 Sodium 143 mmol/L (136-145) 05/02/23 05:10 Corrected Sodium TNP 05/02/23 05:10 Potassium 3.4 mmol/L (3.5-5.1) L 05/02/23 05:10 Chloride 105 mmol/L (98-107) 05/02/23 05:10 Carbon Dioxide 31.9 mmol/L (21-32) 05/02/23 05:10 BUN 13 mg/dL (7-18) 05/02/23 05:10 Creatinine 1.10 mg/dL (0.55-1.02) H 05/02/23 05:10 Est GFR (MDRD) Af Amer > 60 (>60) 05/02/23 05:10 Est GFR (MDRD) Non-Af 51 (>60) L 05/02/23 05:10 Glucose 93 mg/dL (65-99) 05/02/23 05:10 POC Glucose (mg/dL) 83 mg/dL (65-99) 05/01/23 17:43 Lactic Acid 0.5 mmol/L (0.4-2.0) 04/30/23 17:34 Calcium 7.7 mg/dL (8.5-10.1) L 05/02/23 05:10 Corrected Calcium 8.8 mg/dL (8.5-10.1) 05/02/23 05:10 Magnesium 1.6 mg/dL (2.0-2.9) L 05/02/23 05:10 Total Bilirubin 0.70 mg/dL (0.2-1.0) 05/02/23 05:10 AST 14 Units/L (15-37) L 05/02/23 05:10 ALT 9 Units/L (12-78) L 05/02/23 05:10 Alkaline Phosphatase 60 Units/L (46-116) 05/02/23 05:10 Total Protein 5.5 g/dL (6.4-8.2) L 05/02/23 05:10 Albumin 2.6 g/dL (3.4-5.0) L 05/02/23 05:10 Globulin 2.9 g/dL (2.5-4.5) 05/02/23 05:10 Albumin/Globulin Ratio 0.9 Ratio (1.1-2.1) L 05/02/23 05:10 Lipase 29 Units/L (16-77) 04/30/23 17:34 Specimen Type Clean catch urine 04/30/23 17:25 Urine Color Dark yellow (YELLOW) 04/30/23 17:25 Urine Appearance Slightly hazy (CLEAR) 04/30/23 17:25 Urine pH 5.0 (5.0 - 8.0) 04/30/23 17:25 Ur Specific [place] 1.020 (1.000-1.030) 04/30/23 17:25 Urine Protein 1+ (NEGATIVE) 04/30/23 17:25 Urine Glucose (UA) Negative (NEGATIVE) 04/30/23 17: Urine Ketones Negative (NEGATIVE) 04/30/23 17:25 Urine Blood Negative (NEGATIVE) 04/30/23 17:25 Urine Nitrite Negative (NEGATIVE) 04/30/23 17:25 Urine Bilirubin Negative (NEGATIVE) 04/30/23 17:25 Urine Urobilinogen 1+ (NORMAL) 04/30/23 17:25 Ur Leukocyte Esterase Negative (NEGATIVE) 04/30/23 17:25 Urine RBC None seen /HPF (0-3) 04/30/23 17:25 Urine WBC None seen /HPF (0-5) 04/30/23 17:25 Ur Squamous Epith Cells Few /HPF (NEGATIVE) 04/30/23 17:25 Urine Bacteria Trace /HPF (NEGATIVE) 04/30/23 17:25 Urine Mucus Few /HPF (NEGATIVE) 04/30/23 17:25 Ur Culture Indicated? No/not indicated 04/30/23 17:25 Plan (1) Colitis: Status: Acute Narrative Support Text: IV ATBX GI CONSULT BP CONTROL IV HYDRATION, PRN PAIN CONTROL (2) Malignant hypertension: Status: Acute
[2023-05-02 19:42] VITALS: RESP 20
[2023-05-03] MEDS: D5 1/2 NS 1,000 ML 1,000 ML IV SCH (02:07)
[2023-05-03 04:43] VITALS: BP 141/65; PULSE 62; TEMP 98.2; O2SAT 94
[2023-05-03 05:28] LABS: EOSINOPHILS # (AUTO) 0.1 x10^3/uL (0.0-0.2); EOSINOPHILS % (AUTO) 2.9 % (0.9-2.9); HEMATOCRIT 32.9 % (36.0-47.0); HEMOGLOBIN 10.9 g/dL (12.0-16.0); LYMPHOCYTES % (AUTO) 24.6 % (21.0-51.0); MEAN CORPUSCULAR HEMOGLOBIN 28.7 pg (27.0-34.0); MEAN CORPUSCULAR VOLUME 86.9 fL (80.0-100.0); MONOCYTES # (AUTO) 0.4 x10^3/uL (0.3-0.8); NEUTROPHILS # (AUTO) 2.6 x10^3/uL (2.2-4.8); NEUTROPHILS % (AUTO) 62.5 % (42.0-75.0); PLATELET COUNT 154 X10^3/uL (150.0-450.0); RED BLOOD COUNT 3.79 X10^6/uL (3.5-5.4); RED CELL DISTRIBUTION WIDTH 13.6 % (11.6-16.5); WHITE BLOOD COUNT 4.2 X10^3/uL (3.6-10.0)
[2023-05-03] MEDS: SYNTHROID 75 mcg TAB PO SCH (05:39)
[2023-05-03] MEDS: ZOSYN VIAL 3.375 GRAMS 3.375 G in NS 100 ML IV 100 ML IV SCH (05:39)
[2023-05-03 05:41] LABS: ALANINE AMINOTRANSFERASE 8 Units/L (12-78); ALBUMIN 2.4 g/dL (3.4-5.0); ALKALINE PHOSPHATASE 53 Units/L (46-116); ASPARTATE AMINO TRANSFERASE 17 Units/L (15-37); BLOOD UREA NITROGEN 12 mg/dL (7-18); CALCIUM 7.4 mg/dL (8.5-10.1); CARBON DIOXIDE 29.5 mmol/L (21-32); CHLORIDE 107 mmol/L (98-107); COR CA(FOR HYPOALB) 8.7 mg/dL (8.5-10.1); COR NA(FOR HYPERGLY) 142 mmol/L (136-145); CREATININE 1.02 mg/dL (0.55-1.02); GLUCOSE 111 mg/dL (65-99); MAGNESIUM 1.9 mg/dL (2.0-2.9); POTASSIUM 3.5 mmol/L (3.5-5.1); SODIUM 142 mmol/L (136-145); TOTAL PROTEIN 5.4 g/dL (6.4-8.2); eGFR NON BLACK RACES 55 (>60)
[2023-05-03] MEDS ORDERED: CONSULT PHARMACY - POTASSIUM & MAGNESIUM XX SCH (07:00)
[2023-05-03] MEDS ORDERED: KLOR-CON PO SCH (09:00)
[2023-05-03] MEDS ORDERED: MAG-OX TAB PO SCH (09:00)
--- NOTE | 2023-05-03 21:19 | PCM.DCPLAN ---
DISCHARGE SUMMARY Admission Date Date of Admission: 04/30/23 Discharge Date Discharge Date: 05/03/23 Admission Diagnoses (1) Colitis: Status: Acute (2) Malignant hypertension: Status: Acute Discharge Diagnoses Discharge Diagnosis: 1. Patient checked out AMA 2. Colitis versus colonic neoplasm versus ischemia 3. Anemia 4. Malignant hypertension 5. Hypercholesteremia Discharge Medications Discharge Medications: Home Medication List aspirin 81 mg capsule 81 mg PO DAILY 04/30/23 [History] atorvastatin 10 mg tablet 10 mg PO QDAY 04/30/23 [History] cholecalciferol (vitamin D3) 100 mcg (4,000 unit) capsule 100 mcg PO DAILY 04/30/23 [History] hydrochlorothiazide 12.5 mg capsule 12.5 mg PO QAM swelling 04/30/23 [History] meloxicam 15 mg tablet 15 mg PO QDAY 04/30/23 [History] Prescriptions: Hospital Course Latest Lab Results: Laboratory Last Values WBC 4.2 X10^3/uL (3.6-10.0) 05/03/23 05:00 RBC 3.79 X10^6/uL (3.5-5.4) 05/03/23 05:00 Hgb 10.9 g/dL (12.0-16.0) L 05/03/23 05:00 Hct 32.9 % (36.0-47.0) L 05/03/23 05:00 MCV 86.9 fL (80.0-100.0) 05/03/23 05:00 MCH 28.7 pg (27.0-34.0) 05/03/23 05:00 MCHC 33.0 g/dL (33.0-35.0) 05/03/23 05:00 RDW 13.6 % (11.6-16.5) 05/03/23 05:00 Plt Count 154 X10^3/uL (150.0-450.0) 05/03/23 05:00 MPV 8.0 fL (7.4-11.0) 05/03/23 05:00 Neut % (Auto) 62.5 % (42.0-75.0) 05/03/23 05:00 Lymph % (Auto) 24.6 % (21.0-51.0) 05/03/23 05:00 [place] % (Auto) 9.0 % (0.0-13.0) 05/03/23 05:00 Eos % (Auto) 2.9 % (0.9-2.9) 05/03/23 05:00 Baso % (Auto) 1.0 % (0.2-1.0) 05/03/23 05:00 Neut # (Auto) 2.6 x10^3/uL (2.2-4.8) 05/03/23 05:00 Lymph # (Auto) 1.0 X10^3/uL (1.3-2.9) L 05/03/23 05:00 [place] # (Auto) 0.4 x10^3/uL (0.3-0.8) 05/03/23 05:00 Eos # (Auto) 0.1 x10^3/uL (0.0-0.2) 05/03/23 05:00 Baso # (Auto) 0.0 X10^3/uL (0.0-0.1) 05/03/23 05:00 Absolute Nucleated RBC 0.1 /100WBC 05/03/23 05:00 Sodium 142 mmol/L (136-145) 05/03/23 05:00 Corrected Sodium 142 mmol/L (136-145) 05/03/23 05:00 Potassium 3.5 mmol/L (3.5-5.1) 05/03/23 05:00 Chloride 107 mmol/L (98-107) 05/03/23 05:00 Carbon Dioxide 29.5 mmol/L (21-32) 05/03/23 05:00 BUN 12 mg/dL (7-18) 05/03/23 05:00 Creatinine 1.02 mg/dL (0.55-1.02) 05/03/23 05:00 Est GFR (MDRD) Af Amer > 60 (>60) 05/03/23 05:00 Est GFR (MDRD) Non-Af 55 (>60) L 05/03/23 05:00 Glucose 111 mg/dL (65-99) H 05/03/23 05:00 POC Glucose (mg/dL) 83 mg/dL (65-99) 05/01/23 17:43 Lactic Acid 0.5 mmol/L (0.4-2.0) 04/30/23 17:34 Calcium 7.4 mg/dL (8.5-10.1) L 05/03/23 05:00 Corrected Calcium 8.7 mg/dL (8.5-10.1) 05/03/23 05:00 Magnesium 1.9 mg/dL (2.0-2.9) L 05/03/23 05:00 Total Bilirubin 0.50 mg/dL (0.2-1.0) 05/03/23 05:00 AST 17 Units/L (15-37) 05/03/23 05:00 ALT 8 Units/L (12-78) L 05/03/23 05:00 Alkaline Phosphatase 53 Units/L (46-116) 05/03/23 05:00 Total Protein 5.4 g/dL (6.4-8.2) L 05/03/23 05:00 Albumin 2.4 g/dL (3.4-5.0) L 05/03/23 05:00 Globulin 3.0 g/dL (2.5-4.5) 05/03/23 05:00 Albumin/Globulin Ratio 0.8 Ratio (1.1-2.1) L 05/03/23 05:00 Lipase 29 Units/L (16-77) 04/30/23 17:34 Specimen Type Clean catch urine 04/30/23 17:25 Urine Color Dark yellow (YELLOW) 04/30/23 17:25 Urine Appearance Slightly hazy (CLEAR) 04/30/23 17:25 Urine pH 5.0 (5.0 - 8.0) 04/30/23 17:25 Ur Specific [place] 1.020 (1.000-1.030) 04/30/23 17:25 Urine Protein 1+ (NEGATIVE) 04/30/23 17:25 Urine Glucose (UA) Negative (NEGATIVE) 04/30/23 17: Urine Ketones Negative (NEGATIVE) 04/30/23 17: Urine Blood Negative (NEGATIVE) 04/30/23 17: Urine Nitrite Negative (NEGATIVE) 04/30/23 17:25 Urine Bilirubin Negative (NEGATIVE) 04/30/23 17: Urine Urobilinogen 1+ (NORMAL) 04/30/23 17:25 Ur Leukocyte Esterase Negative (NEGATIVE) 04/30/23 17: Urine RBC None seen /HPF (0-3) 04/30/23 17:25 Urine WBC None seen /HPF (0-5) 04/30/23 17:25 Ur Squamous Epith Cells Few /HPF (NEGATIVE) 04/30/23 17:25 Urine Bacteria Trace /HPF (NEGATIVE) 04/30/23 17:25 Urine Mucus Few /HPF (NEGATIVE) 04/30/23 17:25 Ur Culture Indicated? No/not indicated 04/30/23 17:25 Hospital Course: This 83-year-old white female admitted through [facility] emergency department after being diagnosed with possible colitis. She reported that she was having a hard time moving her bowels. She thought she had to move her bowels but was unable to. They did a CT scan of her abdomen and pelvis and it showed possible colitis versus ischemic bowel versus possible ischemic bowel. There was no fat stranding she had no elevated white blood cell count. She was started on IV Flagyl and Zosyn. A surgical consult was done but it was elected to treat her with IV antibiotics over a few days to see what happened. That was done but unfortunately this morning the patient checked herself out AMA before I arrived for morning rounds. Her labs this morning look fairly well. Her hemoglobin is slightly low at 10.9 which is slightly down from yesterday which was 11.2. Her platelet count was normal at 154,000 and her white blood cell count remains normal at 4200. She has had no leukocytosis no elevated neutrophil count during her hospital stay since 30 April. I am more concerned of a neoplastic mass since she has not had any elevated white blood cell count and that she has the urge to move her bowels but is unable to. The patient's physician is Dr. Gonzalez in [place], [place] however she always comes to [place], [place] whenever she feels like she needs to be hospitalized. We will make sure that we send copies of her medical records, x-rays, labs and CT scans to Dr. Gonzalez so he can review all of this and make sure that the patient receives the proper care and follow- up.
== END 2023-05-03 08:20 | disposition home or self-care (01) | DRG 392 ==
LOC: MED/SURG 16:35 → ER 16:35 → OBSVTOIN 19:56 → MED/SURG 22:10
PROVIDERS: ADMIT Internal Medicine; ATTEND Internal Medicine
PROC: SIGMOID (2023-05-01 18:35)
DX: K52.89 Other specified noninfective gastroenteritis and colitis; K59.09 Other constipation; E78.2 Mixed hyperlipidemia; R11.2 Nausea with vomiting, unspecified; R10.84 Generalized abdominal pain; R93.5 Abnormal findings on diagnostic imaging of other abdominal regions, including retroperitoneum; I10 Essential (primary) hypertension; Z53.29 Procedure and treatment not carried out because of patient's decision for other reasons